=== PATIENT | male | born 1970 | race Caucasian/White ===

== ENCOUNTER 2021-03-20 18:39 | Inpatient (IN) | payer BC ==
[~2021-03-20] VITALS: Ht 167.6 cm; Wt 113.3 kg
[2021-03-20 18:48] VITALS: BP 156/90
[2021-03-20] MEDS ORDERED: SUPER THERAVIT1 EACH PO (18:50)
[2021-03-20 19:31] LABS: INFLUENZA A ANTIGEN Negative (Negative); INFLUENZA B ANTIGEN Negative (Negative)
[2021-03-20 20:40] LABS: ABSOLUTE LYMPHOCYTES 0.4 thou/uL (0.8-5.3); ABSOLUTE MONOCYTES 0.4 thou/uL (0.0-1.2); BASOPHILS 0.4 %; HEMATOCRIT 41.7 % (42.0-52.0); HEMOGLOBIN 13.9 gm/dL (14.0-18.0); LYMPHOCYTES 8.9 %; MCHC 33.4 g/dL (28.0-37.0); MCV 83.8 fL (80.0-100.0); MONOCYTES 8.9 %; MPV 9.1 fl. (7.2-11.1); NUCLEATED RBCS 0 /100WBC; PLATELET COUNT* 133 thou/uL (150-400); POLYS 81.8 %; RBC 4.97 mil/uL (4.50-6.00); RDW-CV 13.9 % (10.5-14.5); WBC 4.9 thou/uL (4.0-11.0)
[2021-03-20 20:54] LABS: CALCIUM 7.9 mg/dL (8.5-10.1); POTASSIUM 4.2 mmol/L (3.5-5.1)
[2021-03-20 20:57] LABS: ALBUMIN 3.1 g/dL (3.4-5.0); TOTAL BILIRUBIN 0.7 mg/dL (<0.1-1.0); TOTAL PROTEIN 7.3 g/dL (6.4-8.2)
[2021-03-20 22:44] VITALS: BP 147/73
[2021-03-20 22:50] VITALS: BP 145/80
[2021-03-21 00:26] VITALS: BP 133/75
[2021-03-21 03:30] VITALS: BP 122/72
[2021-03-21 09:00] VITALS: BP 116/67
--- NOTE | 2021-03-21 10:20 | EKG ---
[place] [address] ELECTROCARDIOGRAM REPORT Name: VERONIKA RODAS Room: [address] ADM IN .R.#: [id number] Admission: 03/20/21 Attend Phys: Altagracia Sotelo Discharge: Date of : 74 Date of Service: 03/20/212037 Report #: [id number] THIS REPORT FOR: //name// [facility] ED Test Date: 2021-03-20 Test Time: 20:38:05 Pat Name: VERONIKA RODAS Department: Room: [facility] Gender: M [employer]: ELIZABETH : 1970 Requested By: Luis Topete Order Number: [id number] MD: Melo Yusuf Measurements Intervals [place] Rate: 106 P: 66 MN: 133 QRS: -6 QRSD: 120 T: 11 QT: 324 QTc: 431 Interpretive Statements Sinus tachycardia Nonspecific intraventricular conduction delay No previous ECG available for comparison Electronically Signed On 03-21-2021 10:20:07 [employer] by Melo Yusuf [email or web address] <ELECTRONICALLY SIGNED> By: Melo Yusuf MD, FAC 03/21/21 1020 37 37 Melo Yusuf MD, [facility] /EPI
[2021-03-21 12:00] VITALS: BP 114/63
[2021-03-21 16:00] VITALS: BP 121/72
[2021-03-21 20:00] VITALS: BP 125/67
[2021-03-22] VITALS (7 sets, daily range): BP systolic 98–136; BP diastolic 56–78
[2021-03-22 04:41] LABS: CHOLESTEROL 91 mg/dL (<200); HDL CHOLESTEROL 38 mg/dL (>40); LDL CHOLESTEROL 41 mg/dL (<100); TC:HDL 2.4 Ratio (Not establshd); TRIGLYCERIDE 61 mg/dL (<150); VLDL 12 mg/dL (<40)
[2021-03-22 04:45] LABS: SERUM ASSESSMENT CLEAR
[2021-03-22 09:08] LABS: CALCIUM 7.7 mg/dL (8.5-10.1); CREATININE 0.9 mg/dL (0.6-1.3); POTASSIUM 4.3 mmol/L (3.5-5.1)
[2021-03-23 04:20] VITALS: BP 115/72
[2021-03-23 08:43] VITALS: BP 111/66
[2021-03-23 11:52] VITALS: BP 116/52
[2021-03-23 15:33] VITALS: BP 120/52
[2021-03-23 20:00] VITALS: BP 128/63
[2021-03-24] VITALS: BP 130/70
[2021-03-24 04:30] VITALS: BP 116/70
[2021-03-24 07:50] VITALS: BP 123/68
[2021-03-24 08:51] LABS: CALCIUM 8.1 mg/dL (8.5-10.1); CREATININE 0.9 mg/dL (0.6-1.3); POTASSIUM 3.8 mmol/L (3.5-5.1)
[2021-03-24 12:00] VITALS: BP 125/71
[2021-03-24 14:01] LABS: HEMATOCRIT 42.1 % (42.0-52.0); MCH 28.1 pg (26.0-34.0); MCHC 33.2 g/dL (28.0-37.0); MCV 84.5 fL (80.0-100.0); MPV 10.3 fl. (7.2-11.1); NUCLEATED RBCS 0 /100WBC; PLATELET COUNT* 242 thou/uL (150-400); RBC 4.98 mil/uL (4.50-6.00); RDW-CV 14.3 % (10.5-14.5); WBC 10.2 thou/uL (4.0-11.0)
[2021-03-24 14:11] LABS: APTT 24.2 Seconds (25.0-31.3); INR 1.1; PROTIME 10.8 Seconds (9.20-11.50)
[2021-03-24 14:39] LABS: ABSOLUTE LYMPHOCYTES 0.7 thou/uL (0.8-5.3); ABSOLUTE NEUTROPHILS 8.5 thou/uL (1.6-8.1); PLATELET ESTIMATE ADEQUATE
[2021-03-24 14:40] LABS: GIANT PLATELETS FEW
[2021-03-24 16:00] VITALS: BP 123/70
--- NOTE | 2021-03-24 17:58 | 2DMMODE ---
[place] [address] 2 D/M-MODE ECHOCARDIOGRAM Name: VERONIKA RODAS Room: [address] IN [facility]#: [id number] Admission: 03/20/21 Attend Phys: Altagracia Sotelo Discharge: Date of : 74 Date of Service: 03/24/21 1758 Report #: [id number] THIS REPORT FOR: cc: FAM - No family physician/PCP FAM - No family physician/PCP Galindo Currie MD [facility] ~ APPROVED REPORT Study performed: 03/24/2021 16:22:18 EXAM: Comprehensive 2D, Doppler, and color-flow Echocardiogram Patient Location: In-Patient Room #: [facility] Status: routine BSA: 2.20 HR: 67 bpm BP: 125/71 mmHg Rhythm: NSR Other Information Study Quality: Good Indications Dyspnea 2D Dimensions IVSd: 9.14 (7-11mm) LVOT Diam: 24.82 (18-24mm) LVDd: 56.66 mm PWd: 9.42 (7-11mm) Ascending Ao: 28.27 (22-36mm) LVDs: 39.67 (25-40mm) Aortic Root: 35.98 mm Volumes Left Atrial Volume (Systole) LA ESV Index: 35.80 mL/m2 Aortic Valve AoV Peak Danie.: 1.45 m/s AO Peak Gr.: 8.46 mmHg LVOT Max P.71 mmHg AO Mean Gr.: 4.59 mmHg LVOT Mean P.45 mmHg LVOT Max V: 1.09 m/s AO V2 VTI: 28.14 cm LVOT Mean V: 0.73 m/s LEE (VTI): 4.59 cm2 LVOT V1 VTI: 26.68 [place] [address] 2 D/M-MODE ECHOCARDIOGRAM Name: VERONIKA RODAS Room: [address] IN ..#: [id number] Admission: 03/20/21 Attend Phys: Altagracia Sotelo Discharge: Date of : 74 Date of Service: 03/24/21 1758 Report #: [id number] Mitral Valve E/A Ratio: 1.54 MV Decel. Time: 205.12 ms MV E Max Danie.: 0.90 m/s MV PHT: 59.49 ms MVA (PHT): 3.70 cm2 TDI E/Lateral E': 4.50 E/Medial E': 4.74 Medial E' Danie.: 0.19 m/s Lateral E' Danie.: 0.20 m/s Pulmonary Valve PV Peak Danie.: 1.49 m/s PV Peak Gr.: 8.86 mmHg Left Ventricle The left ventricle is normal size. There is normal LV segmental wall motion. There is normal left ventricular wall thickness. Left ventricular systolic function is normal. LVEF is 60-65%. The left ventricular diastolic function is normal. Right Ventricle The right ventricle is normal size. The right ventricular systolic function is normal. Atria Left atrium is borderline dilated. The right atrium size is normal. Aortic Valve The aortic valve is normal in structure. No aortic regurgitation is present. There is no aortic valvular stenosis. Mitral Valve The mitral valve is normal in structure. Trace mitral regurgitation. No evidence of mitral valve stenosis. Tricuspid Valve The tricuspid valve is normal in structure. Trace tricuspid regurgitation. Unable to assess PA pressure. Pulmonic Valve The pulmonary valve is normal in structure. Trace pulmonic regurgitation[place] [address] 2 D/M-MODE ECHOCARDIOGRAM Name: VERONIKA RODAS Room: [address] IN [facility]#: [id number] Admission: 03/20/21 Attend Phys: Altagracia Sotelo Discharge: Date of : 74 Date of Service: 03/24/21 1758 Report #: [id number] The aortic root is normal in size. IVC is normal in size and collapses >50% with inspiration. Pericardium There is no pericardial effusion. <Conclusion> The left ventricle is normal size. There is normal left ventricular wall thickness. Left ventricular systolic function is normal. LVEF is 60-65%. The left ventricular diastolic function is normal. There is normal LV segmental wall motion. Left atrium is borderline dilated. Trace mitral regurgitation. Trace tricuspid regurgitation. IVC is normal in size and collapses >50% with inspiration. <ELECTRONICALLY SIGNED> By: Galindo Currie MD, FACC 03/24/211757 57 57 Galindo Currie MD, FACC /INF
[2021-03-24 19:33] LABS: ALBUMIN 2.8 g/dL (3.4-5.0); DIRECT BILIRUBIN 0.3 mg/dL (<0.1-0.3); TOTAL BILIRUBIN 0.8 mg/dL (<0.1-1.0); TOTAL PROTEIN 6.8 g/dL (6.4-8.2)
[2021-03-24 20:00] VITALS: BP 122/65
[2021-03-25] VITALS (7 sets, daily range): BP systolic 111–144; BP diastolic 53–76
[2021-03-25 05:34] LABS: ABSOLUTE LYMPHOCYTES 0.4 thou/uL (0.8-5.3); ABSOLUTE MONOCYTES 0.9 thou/uL (0.0-1.2); ABSOLUTE NEUTROPHILS 8.6 thou/uL (1.6-8.1); BASOPHILS 0.1 %; HEMATOCRIT 40.1 % (42.0-52.0); HEMOGLOBIN 13.3 gm/dL (14.0-18.0); LYMPHOCYTES 3.5 %; MCH 27.5 pg (26.0-34.0); MCHC 33.3 g/dL (28.0-37.0); MCV 82.8 fL (80.0-100.0); MONOCYTES 9.4 %; MPV 9.4 fl. (7.2-11.1); NUCLEATED RBCS 0 /100WBC; PLATELET COUNT* 225 thou/uL (150-400); RBC 4.84 mil/uL (4.50-6.00); RDW-CV 14.1 % (10.5-14.5); WBC 9.9 thou/uL (4.0-11.0)
[2021-03-25 05:46] LABS: PHOSPHORUS* 3.2 mg/dL (2.5-4.9)
[2021-03-25 05:53] LABS: ALBUMIN 2.8 g/dL (3.4-5.0); CREATININE 0.8 mg/dL (0.6-1.3); MAGNESIUM 2.5 mg/dL (1.8-2.4); TOTAL BILIRUBIN 0.7 mg/dL (<0.1-1.0); TOTAL PROTEIN 6.8 g/dL (6.4-8.2)
[2021-03-26 00:05] VITALS: BP 130/76
[2021-03-26 04:26] VITALS: BP 124/58
[2021-03-26 04:40] LABS: ABSOLUTE LYMPHOCYTES 0.3 thou/uL (0.8-5.3); ABSOLUTE MONOCYTES 0.8 thou/uL (0.0-1.2); ABSOLUTE NEUTROPHILS 10.2 thou/uL (1.6-8.1); BASOPHILS 0.1 %; HEMATOCRIT 42.3 % (42.0-52.0); HEMOGLOBIN 14.1 gm/dL (14.0-18.0); LYMPHOCYTES 2.4 %; MCH 27.7 pg (26.0-34.0); MCHC 33.2 g/dL (28.0-37.0); MCV 83.4 fL (80.0-100.0); MONOCYTES 7.4 %; MPV 9.7 fl. (7.2-11.1); NUCLEATED RBCS 0 /100WBC; PLATELET COUNT* 230 thou/uL (150-400); POLYS 90.1 %; RBC 5.08 mil/uL (4.50-6.00); RDW-CV 13.7 % (10.5-14.5); WBC 11.3 thou/uL (4.0-11.0)
[2021-03-26 05:14] LABS: ALBUMIN 3.1 g/dL (3.4-5.0); CALCIUM 8.6 mg/dL (8.5-10.1); CREATININE 1.1 mg/dL (0.6-1.3); MAGNESIUM 2.5 mg/dL (1.8-2.4); TOTAL BILIRUBIN 1.1 mg/dL (<0.1-1.0); TOTAL PROTEIN 7.6 g/dL (6.4-8.2)
[2021-03-26 08:00] VITALS: BP 120/68
--- NOTE | 2021-03-26 11:31 | CON ---
[address] [address] CONSULTATION Name: VERONIKA RODAS Deric Room: [address] IN .R.#: [id number] Admission: 03/20/21 Attend Phys: Shavonne Portillo Discharge: Date of : 74 Report #: [id number] THIS REPORT FOR: cc: FAM - No family physician/PCP FAM - No family physician/PCP Yariel Bell MD ~ CONSULT REQUESTED BY: Dr. Orozco INDICATION FOR CONSULTATION: Acute hypoxemic respiratory failure secondary to COVID-19. HISTORY OF PRESENT ILLNESS: A 50-year-old gentleman. He has a history of morbid obesity, body mass index is 42. It appears to me that he likely has previously undiagnosed obstructive sleep apnea. He, however, otherwise does not have any known past medical history. He is a lifetime nonsmoker. He has not been vaccinated for COVID-19. At this time, he is admitted with shortness of breath as well as a cough and headaches for 9 days' duration. Initially, he also had diarrhea. Upon initial presentation, he was hypoxemic on room air, requiring 3 liters of oxygen to maintain O2 saturation in the low 90s. There has been a progressive increase in his oxygen needs. He currently is requiring a 100 percent FiO2 via a heated high-flow nasal cannula to maintain O2 saturation in the low 90s. He is also coughing up yellow sputum. The patient still, however, remains comfortable on this therapy. REVIEW OF SYSTEMS: The patient answers to the negative for 12 questions for review of systems, except as mentioned above. PAST MEDICAL HISTORY: Morbid obesity, body mass index 42. SOCIAL HISTORY: He has a history of alcohol intake, but no known history of heavy alcohol intake. No known history of smoking or illegal drug use. CURRENT MEDICATIONS: List in [place] reviewed. HOME MEDICATIONS: No home medications. ALLERGIES: No known drug allergies. FAMILY HISTORY: No pertinent family history. PHYSICAL EXAMINATION: GENERAL: He is alert, awake and oriented, appears to [place] [address] CONSULTATION Name: VERONIKA RODAS Room: [address]#: [id number] Admission: 03/20/21 Attend Phys: Shavonne Portillo Discharge: Date of : 74 Report #: [id number] of breath at rest; however, on 100% FiO2 with a heated high-flow nasal cannula. He is saturating 93%. VITAL SIGNS: He has a pulse of 73 and a blood pressure of 123/70, his respiratory rate is 18-20. He is afebrile with a temperature of 36.6. HEENT: Head is normocephalic and atraumatic. Pupils are equal and reactive, appears to have a narrow airway. NECK: Does not show raised JVP, asymmetry, mass or lymph nodes. CHEST: Symmetrical expansion on inspection and palpation. On auscultation, breath sounds are bilaterally equal. I do not hear any added sounds. Breath sounds bilaterally decreased. HEART: Regular. There is no murmur. ABDOMEN: Soft and nontender. EXTREMITIES: Lower extremities, trace edema, no calf tenderness. SKIN: Dry and intact. NEUROLOGIC: Moves all extremities bilaterally equally and spontaneously with no focal deficit identified. DIAGNOSTIC DATA: Repeated a chest x-ray today, looks worse than the x-ray performed on the . Lab work in [facility] reviewed. Repeated labs from this morning reviewed. D-dimer is elevated to 1.5. ASSESSMENT AND PLAN: 1. Acute hypoxemic respiratory failure secondary to COVID-19. He appears to have underlying obstructive sleep apnea and has morbid obesity. Therefore, we will start BiPAP while asleep. Recommend to avoid sleeping supine. Recommend out of bed to chair if feasible. 2. COVID-19. We will continue with Decadron. Increase dose to 10 mg b.i.d. and give him an additional dose of 8 mg this afternoon as well. We will continue with remdesivir. His last available LFTs were mildly elevated. Benefits still appears to be outweighing the risks and therefore, I would continue. We will follow LFTs. If they are not rising, then I would recommend increasing remdesivir duration to 10 days. I recommend giving him Actemra. Unfortunately, Actemra is not available. I do not feel strongly either way regarding administering or holding off on administering convalescent plasma. 3. Pulmonary infiltrates. He has significant yellow sputum production. This is consistent with secondary bacterial infection. I recommended starting linezolid and Levaquin in addition to obtaining some cultures and serologies. 4. Mild fluid overload. We will give him a dose of Lasix and Aldactone this evening. 5. Elevated dimer/deep vein thrombosis prophylaxis. Ordered venous Dopplers, ordered an echo, increased Lovenox to intermediate dose. 6. Blood pressure monitoring. We will give him midodrine if hypotensive. 7. Hyperglycemia, insulin sliding scale. 8. Gastrointestinal prophylaxis, Protonix. [facility] [address] [place] [address] CONSULTATION Name: VERONIKA RODAS Room: [address]#: [id number] Admission: 03/20/21 Attend Phys: Shavonne Portillo Discharge: Date of : 74 Report #: [id number] The patient is critically ill at this time. Total time spent providing critical care to this patient today exceeds 41 minutes. <ELECTRONICALLY SIGNED> By: Yariel Bell MD 03/26/21 1131 1703 1959Aorlando Bell MD /nt
[2021-03-26 12:43] VITALS: BP 120/77
[2021-03-26 16:52] VITALS: BP 117/58
[2021-03-26 20:00] VITALS: BP 109/59
[2021-03-27] VITALS: BP 107/54
[2021-03-27 04:00] VITALS: BP 138/68
[2021-03-27 05:51] LABS: ABSOLUTE LYMPHOCYTES 0.4 thou/uL (0.8-5.3); ABSOLUTE MONOCYTES 0.6 thou/uL (0.0-1.2); ABSOLUTE NEUTROPHILS 10.1 thou/uL (1.6-8.1); BASOPHILS 0.1 %; HEMATOCRIT 42.1 % (42.0-52.0); LYMPHOCYTES 3.2 %; MCHC 33.3 g/dL (28.0-37.0); MONOCYTES 5.6 %; MPV 9.5 fl. (7.2-11.1); NUCLEATED RBCS 0 /100WBC; PLATELET COUNT* 286 thou/uL (150-400); POLYS 91.1 %; RBC 5.01 mil/uL (4.50-6.00); RDW-CV 13.8 % (10.5-14.5); WBC 11.1 thou/uL (4.0-11.0)
[2021-03-27 06:04] LABS: ALBUMIN 2.8 g/dL (3.4-5.0); CALCIUM 8.6 mg/dL (8.5-10.1); CREATININE 0.9 mg/dL (0.6-1.3); MAGNESIUM 2.7 mg/dL (1.8-2.4); POTASSIUM 4.1 mmol/L (3.5-5.1); TOTAL BILIRUBIN 0.8 mg/dL (<0.1-1.0); TOTAL PROTEIN 7.4 g/dL (6.4-8.2)
[2021-03-27 08:39] VITALS: BP 114/74
[2021-03-27 10:08] LABS: MYCOPLASMA PNEUMONIA IgM <770 U/mL (0-769)
[2021-03-27 12:00] VITALS: BP 105/70
[2021-03-27 20:00] VITALS: BP 118/74
[2021-03-28] VITALS: BP 113/60
[2021-03-28 04:00] VITALS: BP 135/84
[2021-03-28 08:25] VITALS: BP 100/67
[2021-03-28 11:55] VITALS: BP 125/77
[2021-03-28 15:57] VITALS: BP 115/68
[2021-03-28 20:00] VITALS: BP 127/76
[2021-03-29] VITALS: BP 113/54
[2021-03-29 04:00] VITALS: BP 120/63
[2021-03-29 07:54] VITALS: BP 114/74
[2021-03-29 11:00] VITALS: BP 114/71
[2021-03-29 13:26] LABS: HEMATOCRIT 45.2 % (42.0-52.0); HEMOGLOBIN 14.8 gm/dL (14.0-18.0); MCH 28.2 pg (26.0-34.0); MCHC 32.8 g/dL (28.0-37.0); MCV 86.1 fL (80.0-100.0); MPV 9.2 fl. (7.2-11.1); NUCLEATED RBCS 0 /100WBC; PLATELET COUNT* 350 thou/uL (150-400); RBC 5.25 mil/uL (4.50-6.00); WBC 11.2 thou/uL (4.0-11.0)
[2021-03-29 13:42] LABS: ALBUMIN 3.2 g/dL (3.4-5.0); CALCIUM 8.6 mg/dL (8.5-10.1); CREATININE 1.2 mg/dL (0.6-1.3); POTASSIUM 4.2 mmol/L (3.5-5.1); TOTAL BILIRUBIN 0.7 mg/dL (<0.1-1.0)
[2021-03-29 14:00] LABS: ABSOLUTE LYMPHOCYTES 0.7 thou/uL (0.8-5.3); ABSOLUTE MONOCYTES 1.3 thou/uL (0.0-1.2); ABSOLUTE NEUTROPHILS 9.2 thou/uL (1.6-8.1)
[2021-03-29 14:02] LABS: CLUMPED PLTS OCCASIONAL; LARGE PLATELETS OCCASIONAL; PLATELET ESTIMATE ADEQUATE
[2021-03-29 14:06] LABS: MYCOPLASMA PNEUMONIA IgG 151 U/mL (0-99)
[2021-03-29 15:40] VITALS: BP 122/68
[2021-03-29 19:59] VITALS: BP 127/73
[2021-03-30] VITALS (7 sets, daily range): BP systolic 105–146; BP diastolic 51–84
[2021-03-31 04:22] LABS: ABSOLUTE LYMPHOCYTES 1.2 thou/uL (0.8-5.3); ABSOLUTE MONOCYTES 1.4 thou/uL (0.0-1.2); ABSOLUTE NEUTROPHILS 7.8 thou/uL (1.6-8.1); BASOPHILS 0.1 %; EOSINOPHILS 0.1 %; HEMATOCRIT 40.6 % (42.0-52.0); HEMOGLOBIN 13.3 gm/dL (14.0-18.0); LYMPHOCYTES 11.8 %; MCH 27.7 pg (26.0-34.0); MCHC 32.7 g/dL (28.0-37.0); MCV 84.7 fL (80.0-100.0); MPV 9.1 fl. (7.2-11.1); NUCLEATED RBCS 0 /100WBC; PLATELET COUNT* 280 thou/uL (150-400); RBC 4.79 mil/uL (4.50-6.00); RDW-CV 13.6 % (10.5-14.5); WBC 10.4 thou/uL (4.0-11.0)
[2021-03-31 04:25] VITALS: BP 99/45
[2021-03-31 04:43] LABS: ALBUMIN 2.6 g/dL (3.4-5.0); CREATININE 0.8 mg/dL (0.6-1.3); MAGNESIUM 2.4 mg/dL (1.8-2.4); POTASSIUM 3.8 mmol/L (3.5-5.1); TOTAL BILIRUBIN 0.6 mg/dL (<0.1-1.0); TOTAL PROTEIN 6.2 g/dL (6.4-8.2)
[2021-03-31 08:00] VITALS: BP 141/83
[2021-03-31] MEDS ORDERED: DECADRON6 MG PO (12:19)
[2021-03-31 12:35] VITALS: BP 119/83
[2021-03-31 14:52] VITALS: BP 119/83
== END 2021-03-31 17:00 | disposition home or self-care (01) | DRG 177 ==
LOC: M.ERS 18:39 → M.TBA-ER 20:07 → M.ORTHSURG 20:07 → M.2W 03-30 21:56
PROVIDERS: Internal Medicine; Internal Medicine Critical Care Medicine; Physician Assistant; ADMIT Internal Medicine; ATTEND Internal Medicine
PROC: XW033E5 Introduction of Remdesivir Anti-infective into Peripheral Vein, Percutaneous Approach, New Technology Group 5 (ICD-10-PCS; 2021-03-20)
PROC: XW13325 Transfusion of Convalescent Plasma (Nonautologous) into Peripheral Vein, Percutaneous Approach, New Technology Group 5 (ICD-10-PCS; principal; 2021-03-25)
PROC: 5A0935A Assistance with Respiratory Ventilation, Less than 24 Consecutive Hours, High Flow/Velocity Cannula (ICD-10-PCS; 2021-03-25)
PROC: 5A0935A Assistance with Respiratory Ventilation, Less than 24 Consecutive Hours, High Flow/Velocity Cannula (ICD-10-PCS; 2021-03-26)
PROC: 5A09357 Assistance with Respiratory Ventilation, Less than 24 Consecutive Hours, Continuous Positive Airway Pressure (ICD-10-PCS; 2021-03-26)
PROC: 05HF33Z Insertion of Infusion Device into Left Cephalic Vein, Percutaneous Approach (ICD-10-PCS; 2021-03-26)
PROC: 5A0935A Assistance with Respiratory Ventilation, Less than 24 Consecutive Hours, High Flow/Velocity Cannula (ICD-10-PCS; 2021-03-27)
PROC: 5A09357 Assistance with Respiratory Ventilation, Less than 24 Consecutive Hours, Continuous Positive Airway Pressure (ICD-10-PCS; 2021-03-27)
PROC: 5A09357 Assistance with Respiratory Ventilation, Less than 24 Consecutive Hours, Continuous Positive Airway Pressure (ICD-10-PCS; 2021-03-27)
PROC: 5A0935A Assistance with Respiratory Ventilation, Less than 24 Consecutive Hours, High Flow/Velocity Cannula (ICD-10-PCS; 2021-03-28)
PROC: 5A09357 Assistance with Respiratory Ventilation, Less than 24 Consecutive Hours, Continuous Positive Airway Pressure (ICD-10-PCS; 2021-03-28)
PROC: 5A09357 Assistance with Respiratory Ventilation, Less than 24 Consecutive Hours, Continuous Positive Airway Pressure (ICD-10-PCS; 2021-03-28)
PROC: 5A0935A Assistance with Respiratory Ventilation, Less than 24 Consecutive Hours, High Flow/Velocity Cannula (ICD-10-PCS; 2021-03-29)
PROC: 5A09357 Assistance with Respiratory Ventilation, Less than 24 Consecutive Hours, Continuous Positive Airway Pressure (ICD-10-PCS; 2021-03-29)
PROC: 5A0935A Assistance with Respiratory Ventilation, Less than 24 Consecutive Hours, High Flow/Velocity Cannula (ICD-10-PCS; 2021-03-30)
PROC: 5A09357 Assistance with Respiratory Ventilation, Less than 24 Consecutive Hours, Continuous Positive Airway Pressure (ICD-10-PCS; 2021-03-30)
PROC: 5A0935A Assistance with Respiratory Ventilation, Less than 24 Consecutive Hours, High Flow/Velocity Cannula (ICD-10-PCS; 2021-03-31)
DX: U07.1 COVID-19 (principal); J12.82 Pneumonia due to coronavirus disease 2019; J96.01 Acute respiratory failure with hypoxia; E87.1 Hypo-osmolality and hyponatremia; Z68.41 Body mass index [BMI] 40.0-44.9, adult; R73.9 Hyperglycemia, unspecified; E87.70 Fluid overload, unspecified; R74.01 Elevation of levels of liver transaminase levels; E88.09 Other disorders of plasma-protein metabolism, not elsewhere classified; E66.01 Morbid (severe) obesity due to excess calories